=== PATIENT | female | born 1955 | race Caucasian/White ===

== ENCOUNTER 2016-09-09 14:11 | Emergency (ER) | payer SELFPAY ==
[~2016-09-09] VITALS: Ht 167.6 cm; Wt 70.3 kg
[2016-09-09 14:11] VITALS: BP 160/83
[2016-09-09] MEDS ORDERED: AMOXICILLIN TRIHYDRATE 250 MG CAPSULE ONE ×2 (15:20→15:24)
[2016-09-09] MEDS ORDERED: AMOXICILLIN TRIHYDRATE 250 MG CAPSULE PO ONE (15:30)
== END 2016-09-09 15:28 | disposition home or self-care (01) ==
LOC: ER 14:12
DX: J02.0 Streptococcal pharyngitis (principal); I10 Essential (primary) hypertension; Z88.2 Allergy status to sulfonamides
CPT/HCPCS: A4606; Z7610